=== PATIENT | male | born 1975 | race Caucasian/White ===

== ENCOUNTER 2019-03-30 17:52 | Inpatient (IN) | payer OTHER ==
--- NOTE | 2019-03-30 18:25 | ED ---
Medical Screening - HPI Summary HPI Summary: Patient presents with S I. History of same. States getting worse as he gets older. States his left him recently, feels like he is losing control. Denies plan denies self-harm at this time. Denies prior mental history. Denies EtOH for the past 4 days. Positive marijuana. No other recreational drug use. Medical history is none. Smoker. - History of Current Complaint Chief Complaint: EDMentalHealth Stated Complaint: MHE PER PT Time Seen by Provider: 03/30/19 18:24 Onset/Duration: Started Days Ago PMH/Surg Hx/FS Hx/Imm Hx Endocrine/Hematology History: Denies: Hx Diabetes, Hx Thyroid Disease Cardiovascular History: Denies: Hx Hypertension, Hx Pacemaker/ICD Respiratory History: Denies: Hx Asthma, Hx Chronic Obstructive Pulmonary Disease (COPD) GI History: Denies: Hx Ulcer History: Denies: Hx Renal Disease Sensory History: Denies: Hx Hearing Aid Opthamlomology History: Denies: Hx Legally Blind Neurological History: Denies: Hx Dementia Psychiatric History: Denies: Hx Panic Disorder - Surgical History Surgery Procedure, Year, and Place: vericose vein surgery right leg. BILATERAL FEMUR FRACTURES NO METAL Infectious Disease History: No Infectious Disease History: Denies: Hx Clostridium Difficile, Hx Hepatitis, Hx Human Immunodeficiency Virus (HIV), Hx of Known/Suspected MRSA, Traveled Outside the [place] in Last 30 Days - Family History Known Family History: Positive: Non-Contributory - Social History Alcohol Use: Occasionally Substance Use Type: Reports: None Smoking Status (MU): Current Every Day Smoker Review of Systems Constitutional: Negative Eyes: Negative ENT: Negative Cardiovascular: Negative Respiratory: Negative Gastrointestinal: Negative Genitourinary: Negative Musculoskeletal: Negative Skin: Negative Neurological: Negative Positive: Depressed All Other Systems Reviewed And Are Negative: Yes Physical Exam Triage Information Reviewed: Yes Vital Signs On Initial Exam: Initial Vitals Temp Pulse Resp BP Pulse Ox 99.9 F 98 20 155/105 95 03/30/19 18:03 03/30/19 18:03 03/30/19 18:03 03/30/19 18:03 03/30/19 18:03 Vital Signs Reviewed: Yes Appearance: Positive: Well-Appearing Skin: Positive: Warm Head/Face: Positive: Normal Head/Face Inspection Eyes: Positive: Normal Neck: Positive: Supple Respiratory/Lung Sounds: Positive: Clear to Auscultation Cardiovascular: Positive: Normal Abdomen Description: Positive: Nontender Musculoskeletal: Positive: Normal Neurological: Positive: Normal Psychiatric: Positive: Normal AVPU Assessment: Alert - James Coma Scale Best Eye Response: 4 - Spontaneous Best Motor Response: 6 - Obeys Commands Best Verbal Response: 5 - Oriented Coma Scale Total: 15 Diagnostics - Vital Signs Vital Signs Temp Pulse Resp BP Pulse Ox 03/30/19 18:03 99.9 F 98 20 155/105 95 - Laboratory Result Diagrams: 03/30/19 18:57 03/30/19 18:57 Lab Statement: Any lab studies that have been ordered have been reviewed, and results considered in the medical decision making process. Course/Dx - Course Course Of Treatment: Patient presents with S I. History of same. States getting worse as he gets older. States his left him recently, feels like he is losing control. Denies plan denies self-harm at this time. Denies prior mental history. Denies EtOH for the past 4 days. Positive marijuana. No other recreational drug use. Medical history is none. Smoker. Vital signs within normal limits. Labs unremarkable. Voluntary admission per Dr. Lange with diagnosis of depression. - Diagnoses Provider Diagnoses: Depression Discharge - Sign-Out/Discharge Documenting (check all that apply): Patient Departure Patient Received Moderate/Deep Sedation with Procedure: No - Discharge Plan Condition: Stable [place] [place] Disposition and Condition Condition: STABLE Disposition: [place]iatric [place] [facility] [place] Attestation Statements Provider Attestation: I was available for consultation for this patient. I did not evaluate the patient or participate in any medical decision making or disposition decisions unless I am specifically named in the chart as having consulted on the patient. If I have consulted on the patient, please see my own ED note on the patient encounter. Sun Portillo MD
[2019-03-30 19:02] LABS: ABS Lymphocytes 2.3 10^3/ul (1.0-4.8); ABS Monocytes 0.7 10^3/ul (0-0.8); ABS Neutrophils 6.1 10^3/ul (1.5-7.7); Eosinophil % 0.5 %; Hematocrit 44 % (42-52); Hemoglobin 14.8 g/dL (14.0-18.0); Lymphocyte % 24.7 %; Mean Corpuscular HGB Conc 34 g/dL (31-36); Mean Corpuscular Hemoglobin 30 pg (27-31); Mean Corpuscular Volume 88 fL (80-94); Mean Platelet Volume 7.2 fL (7.4-10.4); Platelet Count 316 10^3/uL (150-450); Red Blood Count 4.99 10^6 /uL (4.18-5.48); Red Cell Distribution Width 13 % (10-15); White Blood Count 9.1 10^3/uL (3.5-10.8)
[2019-03-30 19:18] LABS: Urine Appearance Clear; Urine Bacteria Absent (Absent); Urine Bilirubin Negative (Negative); Urine Blood 1+ (Negative); Urine Color Yellow; Urine Glucose Negative (Negative); Urine Ketones Negative (Negative); Urine Nitrite Negative (Negative); Urine Protein Negative (Negative); Urine Red Blood Cell Trace(0-2/hpf) (Absent); Urine Urobilinogen Negative (Negative); Urine White Blood Cell Trace(0-5/hpf) (Absent)
[2019-03-30 19:24] LABS: ALT 17 U/L (7-52); AST 12 U/L (13-39); Albumin 4.6 g/dL (3.2-5.2); Albumin/Globulin Ratio 1.8 (1-3); Alkaline Phosphatase 47 U/L (34-104); Anion Gap 6 mmol/L (2-11); BUN/Creatinine Ratio 15.4 (8-20); Blood Urea Nitrogen 14 mg/dL (6-24); CO2 Carbon Dioxide 26 mmol/L (22-32); Calcium 9.5 mg/dL (8.6-10.3); Chloride 108 mmol/L (101-111); EGFR African American 110.6 (>60); EGFR Non-African American 91.4 (>60); Globulin 2.6 g/dL (2-4); Glucose 98 mg/dL (70-100); Potassium 4.3 mmol/L (3.5-5.0); Sodium 140 mmol/L (135-145); Total Protein 7.2 g/dL (6.4-8.9)
[2019-03-30 19:34] LABS: Urine Benzodiazepine Screen None Detected (None Detect); Urine Opiates Screen None Detected (None Detect)
[2019-03-30 20:01] LABS: Acetaminophen < 15 mcg/mL; Alcohol < 10 mg/dL (<10); Salicylate < 2.50 mg/dL (<30)
[2019-03-30 20:16] LABS: TSH (Thyroid Stimulating Horm) 0.51 mcIU/mL (0.34-5.60)
[2019-03-30] MEDS ORDERED: Nicotine* 4MG (FRUIT FLAVOR) GUM PO PRN (21:42)
[2019-03-30] MEDS ORDERED: Nicotine PATCH 21 MG/24 HR* PATCH TRANSDERM ONE (21:51)
[2019-03-30] MEDS: Nicotine* 4MG (FRUIT FLAVOR) GUM PO SCH (22:09)
[2019-03-30] MEDS ORDERED: Al Hydrox/Mg Hydrox/Simet LIQ* 30 ML UDC PO PRN (22:47)
[2019-03-30] MEDS ORDERED: Acetaminophen TAB* 325 MG PO PRN (22:47)
[2019-03-30] MEDS ORDERED: hydrOXYzine HCL TAB* 50 MG ONE (23:36)
[2019-03-31] MEDS: Nicotine* 4MG (FRUIT FLAVOR) GUM PO SCH ×3 (02:00→04:00)
[2019-03-31] MEDS: Nicotine PATCH 21 MG/24 HR* PATCH TRANSDERM SCH (08:21)
[2019-03-31] MEDS: Vitamin THERAPEUTIC TAB PO SCH (08:21)
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
[2019-03-31] MEDS: FLUoxetine CAP* 20 MG PO SCH (13:03)
[2019-03-31] MEDS: Nicotine Patch Removal NOTE PATCH OFF SCH (22:18)
[2019-03-31] MEDS ORDERED: hydrOXYzine HCL TAB* 50 MG PO ONE (23:35)
[2019-04-01] MEDS: Nicotine* 2MG (FRUIT FLAVOR) GUM PO PRN (04:00)
[2019-04-01] MEDS: Nicotine PATCH 21 MG/24 HR* PATCH TRANSDERM SCH (07:05)
[2019-04-01] MEDS: FLUoxetine CAP* 20 MG PO SCH (09:19)
[2019-04-01] MEDS: Vitamin THERAPEUTIC TAB PO SCH (09:19)
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
[2019-04-01] MEDS: Nicotine Patch Removal NOTE PATCH OFF SCH (20:39)
[2019-04-02] MEDS: Nicotine* 2MG (FRUIT FLAVOR) GUM PO PRN (05:42)
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
[2019-04-02] MEDS: Nicotine PATCH 21 MG/24 HR* PATCH TRANSDERM SCH (08:40)
[2019-04-02] MEDS: Vitamin THERAPEUTIC TAB PO SCH (08:41)
[2019-04-02] MEDS: FLUoxetine CAP* 20 MG PO SCH (08:41)
[2019-04-02 11:54] VITALS: BP 136/89
--- NOTE | 2019-04-02 14:36 | PN ---
BSU: Group Therapy Note - Service Type Service Type: [id number] Group Psychotherapy - Group Participation Patient Participating in Group: Yes Level of Group Participation: Attentive, Spontaneously Participate Relatedness to Group: Well Related - Additional Group Comments Group Comments: Jignesh was pleasant and participatory. He was taken out of group for a few things which interrupted his learning about Prozac, but he did well in general and caught up on explanations well.
== END 2019-04-02 13:32 | disposition home or self-care (01) | DRG 754 ==
LOC: ED 17:52 → BSU 21:00 → ED 22:09
PROVIDERS: ADMIT Psychiatry & Neurology Psychiatry; ATTEND Psychiatry & Neurology Psychiatry
PROC: GZHZZZZ Group Psychotherapy (ICD-10-PCS; principal; 2019-04-02)
DX: F32.9 Major depressive disorder, single episode, unspecified (principal); R45.851 Suicidal ideations; Z68.42 Body mass index [BMI] 45.0-49.9, adult; F17.210 Nicotine dependence, cigarettes, uncomplicated; Z62.810 Personal history of physical and sexual abuse in childhood; F63.81 Intermittent explosive disorder; E66.3 Overweight; Z91.5 Personal history of self-harm; Z81.1 Family history of alcohol abuse and dependence; Z72.89 Other problems related to lifestyle
CPT/HCPCS: 36415; 80053; 80307; 80320; 80329; 81003; 81015; 84443; 85025; 87086; 99222; 99233; 99238; 99284; A9270-GY; G0480